=== PATIENT | male | born 1985 | race Caucasian/White ===

== ENCOUNTER 2016-11-06 10:50 | Emergency (ER) | payer SELFPAY ==
[~2016-11-06] VITALS: Ht 172.7 cm; Wt 81.8 kg
[~2016-11-06 10:50] MED LIST: HYDR-3533 PO
[2016-11-06 10:54] VITALS: BP 125/92; PULSE 81; RESP 18; TEMP 98.6; O2SAT 99
--- NOTE | 2016-11-06 12:06 | PD ---
HPI Chief Complaint: Foreign Body Time Seen by Provider: 12:06 Travel History International Travel<30 days: No Contact w/Intl Traveler<30days: No Traveled to known affect area: No History of Present Illness HPI 30-year-old male presents to the emergency department for evaluation of foreign body in his right eye. Patient states he was grinding on a drill bit 2 days ago when something flew into his eye. He attempted to remove it but has been unable to. I has become more irritated and painful over the last 2 days. Denies any visual changes. He is up-to-date on his tetanus vaccination. [facility] Past Medical History Medical History: Denies Significant Hx Social History Alcohol Use: Yes (occl) Tobacco Use: Yes Substance Use: No Allergies-Medications (Allergen,Severity, Reaction): Coded Allergies: No Known Allergies (Unverified , 11/06/16) Reported Meds & Prescriptions Reported Meds & Active Scripts Active Lortab (Hydrocodone-Acetaminophen) 5-325 Mg Tab 1 Tab PO Q6H PRN Erythromycin Opth Oint 5 Mg/Gm Oint 1 Applic RIGHT EYE QID 7 Days Lortab 5 mg/325 mg (Hydrocodone/Acetaminophen 5 mg/325 mg) 1 Tab 1 Tab PO Q6H PRN Review of Systems Except as stated in HPI: all other systems reviewed are Neg Physical Exam Narrative GENERAL: Well-nourished, well-developed patient in no acute distress SKIN: Focused skin assessment warm/dry. HEAD: Normocephalic. EYES: No scleral icterus. Injection of the right eye with mild edema of the superior eyelid. There is a less than 1 mm black foreign body on the cornea just over the iris of the right eye. There is no increased uptake on fluorescein examination. No visible ulcers. No rust ring.. EOMI. PERRL NECK: Supple, trachea midline. No JVD or lymphadenopathy. CARDIOVASCULAR: Regular rate and rhythm without murmurs, gallops, or rubs. RESPIRATORY: Breath sounds equal bilaterally. No accessory muscle use. Data Data Last Documented VS Vital Signs Date Time Temp Pulse Resp B/P Pulse Ox O2 Delivery O2 Flow Rate FiO2 11/06/16 10:54 98.6 81 18 125/92 99 Room Air Orders Proparacaine 0.5% Opth Soln (Alcaine 0.5 (7/13/17 12:15) [facility] Medical Decision Making Medical Screen Exam Complete: Yes Emergency Medical Condition: Yes Medical Record Reviewed: Yes Differential Diagnosis Foreign body versus conjunctivitis versus iritis versus keratitis Narrative Course This 30-year-old male presents to emergency department for evaluation of a foreign body in his right eye. Patient was noted to have a less than 1 mm black foreign body in the cornea of the right eye. Procainamide ophthalmic drops were applied to the eye and adequate anesthesia was obtained. the foreign body was removed using a sterile 20-gauge needle. This is without difficulty. Patient tolerated this well. He'll be started on ophthalmic antibiotic drops. Encouraged to seek ophthalmology evaluation. Patient agrees to return immediately with any acute worsening symptoms. Diagnosis Primary Impression: Eye foreign body Qualified Code: T15.91XA - Eye foreign body, right, initial encounter Referrals: [facility] Care Physician Patient Instructions: Eye Foreign Body (ED), General Instructions Additional Instructions: Avoid rubbing your eye Cool compresses to alleviate irritation Warm compresses if any crusting develops Safety goggles are strongly recommended when working with items that put your eyes at risk Return immediately with any acute worsening of symptoms Med/Other Pt SpecificInfo: Prescription(s) given Scripts Hydrocodone-Acetaminophen (Lortab)5-325 Mg Tab1 Tab PO Q6H PRN (PAIN) #5 TAB Ref 0 Prov:Jennifer Collins 11/06/16 Erythromycin Opth Oint 5 Mg/Gm Oint1 Applic RIGHT EYE QID 7 Days Ref 0 Prov:Jennifer Collins 11/06/16 Disposition: 01 DISCHARGE HOME Condition: Stable Jennifer Collins Nov 06, 2016 12:06
[2016-11-06] MEDS ORDERED: PROPARACAINE HCL 0.5% OPHT SOLN 15 ML BTL RIGHT EYE ONE (12:15)
[2016-11-06] MEDS ORDERED: ERYTOIN10 RIGHT EYE (12:42)
[2016-11-06] MEDS ORDERED: HYDR-3533 PO (12:43)
== END 2016-11-06 12:51 | disposition home or self-care (01) ==
LOC: NEPK 10:50
DX: T15.91XA Foreign body on external eye, part unspecified, right eye, initial encounter (principal); Z79.899 Other long term (current) drug therapy; Z72.0 Tobacco use
CPT/HCPCS: 65220